=== PATIENT | male | born 1960 | race Caucasian/White ===

== ENCOUNTER 2018-03-28 01:49 | Emergency (ER) | payer BC ==
[~2018-03-28] VITALS: Ht 177.8 cm; Wt 102.1 kg
--- NOTE | ~2018-03-28 | EKG ---
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1960 Requested By: GIOVANNI MARCELINO Order Number: [id number] Reading MD: Matthew Hanna MD Measurements Intervals [place] Rate: 103 P: 13 CO: 158 QRS: 11 QRSD: 104 T: QT: 381 QTc: 499 Interpretive Statements Sinus tachycardia Multiple ventricular premature complexes Left ventricular hypertrophy Borderline T abnormalities, inferior leads Baseline wander in lead(s) V1 Compared to previous tracing, frequent PVCs are now present Electronically Signed On 03-28-2018 12:24:52 PDT by Matthew Hanna MD CM:EKGRPT:ELECTROCARDIOGRAM REPORT 0421 1224 GIOVANNI LYON DRAFT REPORT GIOVANNI MARCELINO DO
--- NOTE | ~2018-03-28 | EKG ---
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 Electronically Signed On 03-28-2018 12:18:32 PDT by Matthew Hanna MD CM:EKGRPT:ELECTROCARDIOGRAM REPORT [id number] 1218 GIOVANNI LYON DRAFT REPORT GIOVANNI MARCELINO DO
--- NOTE | ~2018-03-28 | EKG ---
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
[~2018-03-28 01:49] MED LIST: CEFADROXIL500 MG PO; NO DAILY MEDS; VICODIN ES 7501 TAB PO; Vicodin 5/500 505 MG PO
[2018-03-28 02:15] LABS: BASO % 0.4 % (0.0-1.0); EOS # 0.2 10*3/uL (0.0-0.4); EOS % 2.1 % (1.0-4.0); HEMATOCRIT 44.1 % (42.0-52.0); HEMOGLOBIN 14.3 g/dl (14.0-18.0); LYMPH # 3.5 10*3/uL (1.3-4.4); LYMPH % 34.9 % (27.0-41.0); MEAN CELL VOLUME 97.6 fl (80.0-94.0); MEAN CORPUSCULAR HGB 31.6 pg (27.0-31.0); MEAN CORPUSCULAR HGB CONC 32.4 g/dl (33.0-37.0); MEAN PLATELET VOLUME 10.2 fl (9.6-12.3); MONO # 0.7 10*3/uL (0.1-1.0); MONO % 6.6 % (3.0-9.0); NEUT # 5.6 10*3/uL (2.3-7.9); NEUT % 55.8 % (47.0-73.0); PLATELET COUNT AUTOMATED 261 10*3/uL (130-400); RED BLOOD COUNT 4.52 10*6/uL (4.50-5.90); RED CELL DISTRI WIDTH 14.4 % (0-14.5); WHITE BLOOD COUNT 10.1 10*3/uL (4.8-10.8)
[2018-03-28 02:31] LABS: ALBUMIN 2.9 gm/dl (3.1-4.5); ALKALINE PHOSPHATASE 68 U/L (45-117); BUN 26 mg/dl (7-24); CHLORIDE 110 mmol/L (98-107); CREATININE 1.26 mg/dL (0.70-1.30); POTASSIUM 4.1 mmol/L (3.5-5.1); SGOT/AST 23 IU/L (3-35); SGPT/ALT 47 U/L (12-78); SODIUM 146 mmol/L (136-145); TOTAL PROTEIN 6.2 gm/dL (6.4-8.2)
[2018-03-28 02:43] LABS: ACT PARTIAL THROMBO TIME 24.3 SECONDS (20.8-31.5); TROPONIN I 0.126 ng/ml (<0.045)
[2018-03-28 04:55] LABS: ABG BASE EXCESS -4.2 mmol/L (-2.0-2.0); ABG HCO3 21.3 mmol/l (22-26); ABG O2 SATURATION 96.3 % (95-97); ARTERIAL BLOOD GAS PCO2 41.8 mmHg (35-45); ARTERIAL BLOOD GAS PH 7.325 (7.35-7.45); ARTERIAL BLOOD GAS PO2 90.3 mmHg (80-90)
== END 2018-03-28 05:50 | disposition short-term general hospital (02) ==
LOC: ED 01:49
PROVIDERS: Student in an Organized Health Care Education/Training Program
DX: I21.4 Non-ST elevation (NSTEMI) myocardial infarction (principal); F17.200 Nicotine dependence, unspecified, uncomplicated